=== PATIENT | male | born 1980 | race American Indian/Alaskan Native ===

== ENCOUNTER 2024-01-23 05:32 | Day surgery (SDC) | payer OTHER ==
[~2024-01-23 05:32] MED LIST: Dextrose 5%-0.45% NaCl 1,000 ML IV SCH
[2024-01-23] MEDS ORDERED: fentaNYL 100 MCG/2 ML SDV IV ONE (05:33)
[2024-01-23] MEDS ORDERED: Midazolam 1 MG/ML 2 ML SDV IV ONE (05:33)
[2024-01-23] MEDS: Dextrose 5%-0.45% NaCl 1,000 ML IV SCH (06:04)
[2024-01-23] MEDS ORDERED: Midazolam 1 MG/ML 2 ML SDV ONE (06:10)
[2024-01-23] MEDS ORDERED: fentaNYL 100 MCG/2 ML SDV ONE (06:11)
[2024-01-23] MEDS: fentaNYL 100 MCG/2 ML SDV IV ONE ×2 (06:23)
[2024-01-23] MEDS: Midazolam 1 MG/ML 2 ML SDV IV ONE ×5 (06:24→06:31)
== END 2024-01-23 07:50 | disposition home or self-care (01) ==
LOC: DL.ENDO 05:32
PROVIDERS: ATTEND Internal Medicine Gastroenterology
DX: Z12.11 Encounter for screening for malignant neoplasm of colon (principal)
CPT/HCPCS: J2250; J3010; J7799